=== PATIENT | female | born 1980 | race Caucasian/White ===

== ENCOUNTER 2016-11-27 23:01 | Emergency (ER) | payer OTHER ==
[~2016-11-27] VITALS: Ht 165.1 cm; Wt 104.3 kg
[~2016-11-27 23:01] MED LIST: ACETAZOLAMIDE250 MG PO; ACETAZOLAMIDE500 M2 PO; ALLEGRA180 MG PO; ATARAX25 MG PO; AUGMENTIN 875 M1 TAB PO; AUGMENTIN 875875 MG PO; CALCIUM 500 +1 EAC3 PO; CIPROFLOXACIN500 MG PO; DIAMOX500 MG PO; FISH OIL 10001000 MG PO; K-Dur 20MEQ20 MEQ PO; K-TAB20 MEQ PO; LOMOTIL 0.025 M1 TA1 PO; MEDROL DOSEPAK4 MG PO; MIRALAX POWDER17 G1 PO; MOTRIN600 MG PO; MOTRIN800 MG PO; MULTIPLE VITAMI1 TA3 PO; NAPROSYN500 MG PO; NORCO 325 MG-51 TAB PO; OMEPRAZOLE40 MG PO; PEN-VK500 MG PO; POTASSIUM CHLO20 ME3 PO; POTASSIUM20 MEQ PO; PREDNICOT20 MG PO; PRILOSEC40 MG PO; ROCEPHIN2 GM/50 ML IV; TESSALON PERLE200 MG PO; TRAMADOL HCL50 MG PO; VICODIN 5/500 505 MG PO; VITAMIN B122500 MC1 PO; VITAMIN C500 MG PO; VITAMIN D3400 IU PO; VITAMIN D50000 I3 PO; VITRON-C 125 MG1 TAB PO; ZITHROMAX Z PA250 MG PO; ZOFRAN ODT4 MG SL
[2016-11-27 23:23] VITALS: BP 142/70
[2016-11-27] MEDS ORDERED: CEPHALEXIN500 M1 PO (23:33)
== END 2016-11-28 00:27 | disposition home or self-care (01) ==
LOC: ED 23:01
DX: T23.271A Burn of second degree of right wrist, initial encounter (principal); Z79.899 Other long term (current) drug therapy; Z88.6 Allergy status to analgesic agent; Z88.8 Allergy status to other drugs, medicaments and biological substances; Z91.040 Latex allergy status; X15.8XXA Contact with other hot household appliances, initial encounter; Y93.E4 Activity, ironing; Y92.89 Other specified places as the place of occurrence of the external cause; Y99.8 Other external cause status

== ENCOUNTER → 2016-12-21 | Outpatient (CLI) | payer OTHER ==
[~2016-12-21] MED LIST changes: +CEPHALEXIN500 M1 PO
[2016-12-21 08:45] LABS: HEMATOCRIT 44.8 % (37.0-47.0); HEMOGLOBIN 14.8 g/dl (12.0-16.0); MEAN CELL VOLUME 93.3 fl (81.0-99.0); MEAN CORPUSCULAR HGB 30.8 pg (27.0-31.0); MEAN PLATELET VOLUME 9.7 fl (9.6-12.3); RED BLOOD COUNT 4.8 10*6/uL (4.10-5.10); RED CELL DISTRI WIDTH 11.7 % (0-14.5); WHITE BLOOD COUNT 4.7 10*3/uL (4.8-10.8)
[2016-12-21 09:22] LABS: ALBUMIN 3.8 gm/dl (3.1-4.5); BUN 14 mg/dl (7-24); CARBON DIOXIDE 27 mmol/L (21-32); CHLORIDE 109 mmol/L (98-107); EST GLOM FILT AFRICAN AMERICAN > 60 ml/min; GLUCOSE 84 mg/dL (65-99); IRON 180 ug/dL (50-170); POTASSIUM 3.8 mmol/L (3.5-5.1); SGOT/AST 12 IU/L (3-35); SGPT/ALT 24 U/L (12-78); SODIUM 141 mmol/L (136-145); TOTAL PROTEIN 7.1 gm/dL (6.4-8.2)
[2016-12-21 09:26] LABS: ALKALINE PHOSPHATASE 63 U/L (45-117); BILIRUBIN, TOTAL 0.6 mg/dl (0.2-1.0); CHOLESTEROL 184 mg/dL (<200); HDL CHOLESTEROL 76 mg/dl (40-60); LDL CHOLESTEROL 93 mg/dL (9-159); TRIGLYCERIDES 73 mg/dl (<150); VLDL CHOLESTEROL 15 mg/dL (6-40)
[2016-12-21 10:13] LABS: VITAMIN D, 25-HYDROXY 26.9 ng/mL (30-100)
[2016-12-21 10:25] LABS: FOLIC ACID > 24.00 ng/mL (>5.38)
== END | disposition home or self-care (01) ==
LOC: LAB 08:10
PROVIDERS: Family Medicine
DX: D72.819 Decreased white blood cell count, unspecified (principal); E78.00 Pure hypercholesterolemia, unspecified; E53.8 Deficiency of other specified B group vitamins

== ENCOUNTER → 2017-03-29 | Outpatient (CLI) | payer OTHER ==
[2017-03-29 10:03] LABS: BASO % 0.4 % (0.0-1.0); EOS # 0.1 10*3/uL (0.0-0.4); HEMATOCRIT 43.4 % (37.0-47.0); HEMOGLOBIN 14.5 g/dl (12.0-16.0); LYMPH # 1.9 10*3/uL (1.3-4.4); MEAN CELL VOLUME 92.9 fl (81.0-99.0); MEAN CORPUSCULAR HGB CONC 33.4 g/dl (33.0-37.0); MEAN PLATELET VOLUME 9.6 fl (9.6-12.3); MONO # 0.4 10*3/uL (0.1-1.0); MONO % 7.7 % (3.0-9.0); NEUT # 2.2 10*3/uL (2.3-7.9); NEUT % 47.7 % (47.0-73.0); PLATELET COUNT AUTOMATED 256 10*3/uL (130-400); RED BLOOD COUNT 4.67 10*6/uL (4.10-5.10); RED CELL DISTRI WIDTH 11.6 % (0-14.5); WHITE BLOOD COUNT 4.6 10*3/uL (4.8-10.8)
[2017-03-29 10:33] LABS: ALBUMIN 3.6 gm/dl (3.1-4.5); ALKALINE PHOSPHATASE 65 U/L (45-117); BILIRUBIN, TOTAL 0.6 mg/dl (0.2-1.0); BUN 12 mg/dl (7-24); CARBON DIOXIDE 30 mmol/L (21-32); CHLORIDE 108 mmol/L (98-107); CHOLESTEROL 186 mg/dL (<200); EST GLOM FILT AFRICAN AMERICAN > 60 ml/min; GLUCOSE 88 mg/dL (65-99); HDL CHOLESTEROL 72 mg/dl (40-60); IRON 146 ug/dL (50-170); IRON SATURATION 46 %; LDL CHOLESTEROL 102 mg/dL (9-159); POTASSIUM 3.8 mmol/L (3.5-5.1); SGOT/AST 13 IU/L (3-35); SGPT/ALT 21 U/L (12-78); SODIUM 141 mmol/L (136-145); TRIGLYCERIDES 61 mg/dl (<150); UIBC 169 ug/dL (110-365); VLDL CHOLESTEROL 12 mg/dL (6-40)
[2017-03-29 11:08] LABS: FERRITIN 54.1 ng/mL (10.0-291.0); VITAMIN D, 25-HYDROXY 31.7 ng/mL (30-100)
[2017-03-29 11:09] LABS: FOLIC ACID 22.09 ng/mL (>5.38); PTH INTACT 39.7 pg/mL (14.0-72.0)
== END | disposition home or self-care (01) ==
LOC: LAB 09:42
PROVIDERS: Specialist
DX: E16.2 Hypoglycemia, unspecified (principal); G93.2 Benign intracranial hypertension; E55.9 Vitamin D deficiency, unspecified; E78.2 Mixed hyperlipidemia; G47.33 Obstructive sleep apnea (adult) (pediatric); E66.01 Morbid (severe) obesity due to excess calories; K91.2 Postsurgical malabsorption, not elsewhere classified; R06.83 Snoring; M10.9 Gout, unspecified

== ENCOUNTER → 2018-11-21 | Outpatient (CLI) | payer OTHER ==
--- NOTE | ~2018-11-21 | EKG ---
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
[2018-11-21 08:35] LABS: BASO % 0.7 % (0.0-1.0); EOS # 0.1 10*3/uL (0.0-0.4); EOS % 1.8 % (1.0-4.0); HEMATOCRIT 43.9 % (37.0-47.0); HEMOGLOBIN 14.4 g/dl (12.0-16.0); LYMPH # 1.6 10*3/uL (1.3-4.4); LYMPH % 34.4 % (27.0-41.0); MEAN CORPUSCULAR HGB 30.8 pg (27.0-31.0); MEAN CORPUSCULAR HGB CONC 32.8 g/dl (33.0-37.0); MEAN PLATELET VOLUME 9.7 fl (9.6-12.3); MONO # 0.5 10*3/uL (0.1-1.0); MONO % 11.6 % (3.0-9.0); NEUT # 2.3 10*3/uL (2.3-7.9); NEUT % 51.3 % (47.0-73.0); PLATELET COUNT AUTOMATED 274 10*3/uL (130-400); RED BLOOD COUNT 4.67 10*6/uL (4.10-5.10); RED CELL DISTRI WIDTH 11.7 % (0-14.5); WHITE BLOOD COUNT 4.5 10*3/uL (4.8-10.8)
[2018-11-21 09:07] LABS: ALBUMIN 3.6 gm/dl (3.1-4.5); ALKALINE PHOSPHATASE 63 U/L (45-117); BUN 17 mg/dl (7-24); CHLORIDE 108 mmol/L (98-107); CHOLESTEROL 192 mg/dL (<200); CREATININE 0.74 mg/dL (0.55-1.02); HDL CHOLESTEROL 72 mg/dl (40-60); IRON 59 ug/dL (50-170); LDL CHOLESTEROL 102 mg/dL (9-159); PHOSPHOROUS 4.1 mg/dL (2.5-4.9); POTASSIUM 3.8 mmol/L (3.5-5.1); SGOT/AST 21 IU/L (3-35); SGPT/ALT 28 U/L (12-78); SODIUM 141 mmol/L (136-145); TOTAL IRON BINDING CAPACITY 337 ug/dl (250-450); TOTAL PROTEIN 7.3 gm/dL (6.4-8.2); TRIGLYCERIDES 91 mg/dl (<150); VLDL CHOLESTEROL 18 mg/dL (6-40)
[2018-11-21 10:02] LABS: FERRITIN 25.7 ng/mL (10.0-291.0); VITAMIN D, 25-HYDROXY 33.1 ng/mL (30-100)
== END | disposition home or self-care (01) ==
LOC: LAB 08:04
PROVIDERS: Specialist
DX: Z13.29 Encounter for screening for other suspected endocrine disorder (principal); Z13.21 Encounter for screening for nutritional disorder; Z13.0 Encounter for screening for diseases of the blood and blood-forming organs and certain disorders involving the immune mechanism; G93.2 Benign intracranial hypertension; E66.01 Morbid (severe) obesity due to excess calories; E78.2 Mixed hyperlipidemia; K91.2 Postsurgical malabsorption, not elsewhere classified; E55.9 Vitamin D deficiency, unspecified; G47.33 Obstructive sleep apnea (adult) (pediatric); E16.2 Hypoglycemia, unspecified; M10.00 Idiopathic gout, unspecified site; G40.909 Epilepsy, unspecified, not intractable, without status epilepticus

== ENCOUNTER 2021-07-05 20:17 | Emergency (ER) | payer BC ==
[~2021-07-05] VITALS: Ht 162.5 cm; Wt 122.5 kg
[2021-07-05 21:09] VITALS: BP 128/73
== END 2021-07-06 01:33 | disposition left against medical advice (07) ==
LOC: ED 20:17
DX: R10.9 Unspecified abdominal pain (principal); R19.7 Diarrhea, unspecified; Z53.21 Procedure and treatment not carried out due to patient leaving prior to being seen by health care provider

== ENCOUNTER → 2022-01-22 | Outpatient (CLI) | payer BC ==
[2022-01-22 09:24] LABS: BASO % 0.6 % (0.0-1.0); EOS # 0.1 10*3/uL (0.0-0.4); EOS % 3.2 % (1.0-4.0); HEMATOCRIT 37.5 % (37.0-47.0); LYMPH # 1.9 10*3/uL (1.3-4.4); LYMPH % 54.5 % (27.0-41.0); MEAN CELL VOLUME 89.7 fl (81.0-99.0); MEAN CORPUSCULAR HGB 29.4 pg (27.0-31.0); MEAN CORPUSCULAR HGB CONC 32.8 g/dl (33.0-37.0); MEAN PLATELET VOLUME 9.4 fl (9.6-12.3); MONO # 0.4 10*3/uL (0.1-1.0); MONO % 11.2 % (3.0-9.0); NEUT # 1.1 10*3/uL (2.3-7.9); NEUT % 30.2 % (47.0-73.0); PLATELET COUNT AUTOMATED 275 10*3/uL (130-400); RED BLOOD COUNT 4.18 10*6/uL (4.10-5.10); RED CELL DISTRI WIDTH 12.6 % (0-14.5); WHITE BLOOD COUNT 3.5 10*3/uL (4.8-10.8)
[2022-01-22 09:40] LABS: ALKALINE PHOSPHATASE 53 U/L (45-117); BUN 8 mg/dl (7-24); CHLORIDE 109 mmol/L (98-107); CREATININE 0.62 mg/dL (0.55-1.02); IRON 52 ug/dL (50-170); POTASSIUM 3.6 mmol/L (3.5-5.1); SGOT/AST 18 IU/L (3-35); SGPT/ALT 29 U/L (12-78); SODIUM 141 mmol/L (136-145); TOTAL IRON BINDING CAPACITY 355 ug/dl (250-450); TOTAL PROTEIN 6.5 gm/dL (6.4-8.2)
[2022-01-22 10:22] LABS: VITAMIN D, 25-HYDROXY 18.6 ng/mL (30-100)
[2022-01-22 10:23] LABS: FERRITIN 5.7 ng/mL (10.0-291.0)
== END | disposition home or self-care (01) ==
LOC: LAB 09:04
PROVIDERS: ATTEND Specialist
DX: K91.2 Postsurgical malabsorption, not elsewhere classified (principal); Z71.3 Dietary counseling and surveillance

== ENCOUNTER → 2022-12-07 | Outpatient (CLI) | payer BC ==
[2022-12-07 07:54] LABS: BASO # 0.1 10*3/uL (0.0-0.1); BASO % 1.1 % (0.0-1.0); EOS # 0.2 10*3/uL (0.0-0.4); EOS % 3.3 % (1.0-4.0); HEMATOCRIT 38.6 % (37.0-47.0); LYMPH # 2.2 10*3/uL (1.3-4.4); LYMPH % 47.9 % (27.0-41.0); MEAN CELL VOLUME 88.3 fl (81.0-99.0); MEAN CORPUSCULAR HGB 28.1 pg (27.0-31.0); MEAN CORPUSCULAR HGB CONC 31.9 g/dl (33.0-37.0); MEAN PLATELET VOLUME 9.3 fl (9.6-12.3); MONO # 0.4 10*3/uL (0.1-1.0); MONO % 8.3 % (3.0-9.0); NEUT # 1.8 10*3/uL (2.3-7.9); NEUT % 39.4 % (47.0-73.0); PLATELET COUNT AUTOMATED 354 10*3/uL (130-400); RED BLOOD COUNT 4.37 10*6/uL (4.10-5.10); RED CELL DISTRI WIDTH 13.9 % (0-14.5); WHITE BLOOD COUNT 4.6 10*3/uL (4.8-10.8)
[2022-12-07 08:29] LABS: ALKALINE PHOSPHATASE 68 U/L (46-116); BUN 9 mg/dl (9-23); CHLORIDE 108 mmol/L (98-107); CHOLESTEROL 195 mg/dL (<200); LDL CHOLESTEROL 109 mg/dL (9-159); POTASSIUM 3.8 mmol/L (3.4-5.1); SGPT/ALT 11 U/L (10-49); TOTAL PROTEIN 6.5 gm/dL (6.0-8.0); TRIGLYCERIDES 98 mg/dl (<150)
== END | disposition home or self-care (01) ==
LOC: LAB 07:38
PROVIDERS: ATTEND Internal Medicine
DX: R63.5 Abnormal weight gain (principal)

== ENCOUNTER 2023-07-09 20:30 | Emergency (ER) | payer OTHER, BC ==
[~2023-07-09] VITALS: Ht 162.5 cm; Wt 127.0 kg
[2023-07-09 22:30] VITALS: BP 117/46
== END 2023-07-10 02:08 | disposition home or self-care (01) ==
LOC: ED 20:30
DX: M79.642 Pain in left hand (principal); M79.662 Pain in left lower leg; Z88.6 Allergy status to analgesic agent; Z91.040 Latex allergy status; Z88.5 Allergy status to narcotic agent; Z88.8 Allergy status to other drugs, medicaments and biological substances; Z90.49 Acquired absence of other specified parts of digestive tract; Z98.890 Other specified postprocedural states

== ENCOUNTER 2023-07-20 18:10 | Emergency (ER) | payer BC ==
[~2023-07-20] VITALS: Ht 165.1 cm; Wt 127.0 kg
[2023-07-20] MEDS ORDERED: BUPROPION HYDR150 M3 PO (23:51)
[2023-07-20] MEDS ORDERED: ACETAZOLAMIDE500 M4 PO (23:53)
[2023-07-21 00:20] VITALS: BP 124/76
== END 2023-07-21 00:30 | disposition home or self-care (01) ==
LOC: ED 18:10
DX: S80.02XA Contusion of left knee, initial encounter (principal); Z88.6 Allergy status to analgesic agent; Z88.8 Allergy status to other drugs, medicaments and biological substances; Z91.040 Latex allergy status; Z79.899 Other long term (current) drug therapy; Z90.49 Acquired absence of other specified parts of digestive tract; Z98.84 Bariatric surgery status; V89.2XXA Person injured in unspecified motor-vehicle accident, traffic, initial encounter; Y93.89 Activity, other specified; Y92.488 Other paved roadways as the place of occurrence of the external cause; Y99.8 Other external cause status